=== PATIENT | female | born 1980 | race Hispanic/Latino ===

== ENCOUNTER 2016-06-07 09:48 | Day surgery (SDC) | payer OTHER ==
--- NOTE | 2016-06-03 09:10 | PCM.HPSURG ---
Subjective Date of Service: May 26, 2016 Referring Provider: Admitting Physician: Primary Care Physician: Kirsten Morrison DO Attending Physician: Christopher Munroe MD Chief Complaint SEE BELOW History of Present Illness Patient: Denisse Danielle Date of : 1980 Visit Type: Pre Op Visit Date: 05/26/2016 01:00 PM Historian: self This 35 year old female presents for PreOp MIS Left L4-5 Lami/Decompress/ Microdisc. History of Present Illness: 1. PreOp MIS Left L4-5 Lami/Decompress/Microdisc Denisse Betancur is a 35 year old female referred by Primary Care Provider (PCP) Dr. Kirsten Morrison DO who presents today's date 05/26/2016 for a preoperative type of appointment concerning the decision for surgery involving minimally invasive surgery with left L4-5 partial hemilaminectomy, lateral recess decompression & microdiscectomy secondary to a diagnosis of lumbar radiculopathy with related complaints of severe, intractable, debilitating low back pain radiating to the left > right lower extremity with numbness, & paresthesias. The patient was last evaluated on 03/02/[address] Christopher Munroe M.D. documenting that the patient recently moved to this area and presents with episodes of severe local back pain and bilateral radicular pain in an S1 distribution. The patient reported that she has had episodes of local back pain since age 27 usually resolve with rest over 3-7 days. She has had flareups of local back pain 1-2 times per year associated with increased activity. She developed episodes of shooting pain into the buttock and posterior leg in 2013 reported episodes of paresthesias involving the posterior calf feet in both legs. She was seen by a neurosurgeon for follow in July 2015 far an injury that occurred at work, a fall that caused a flareup of back pain and bilateral leg pain. She was referred for trial of steroid injections and the patient reported that she had considerable benefit with relief of back pain and lumbar radicular following the LEONIE. She then had a flareup of severe local back pain and lumbar radicular pain in November 2015, and is no longer responding to medical management, including a trial of physical therapy. It should be noted that an MRI scan of the lumbar spine was obtained in [place], in March 2015 showing a left L4-5 disc herniation with left lateral recess stenosis and possible compression of the left L5 root. There was a small disc bulge on the left at L5-S1 that did not appear to decompress the S1 roots. I was able to review this outside CD of the lumbar MRI in my office. The issue with this patient is whether there has been a progression of the disc herniation at L4-5 or L5-S1 causing bilateral S1 radiculopathy, since her symptoms flared up in November 2015. According to Dr. Munroe the patient has significant lumbar radiculopathy with left L4-5 herniated nucleus pulposus, lateral recess stenosis, & compression of the left L5 nerve root and left L5 radiculopathy refractory to medical management. Consequently he recommends lumbar spinal surgery involving minimally invasive lumbar spinal decompression & discectomy. Dr. Christensen & the patient discussed all the risks and benefits associated with the procedure well as well as reasonable expectations with regards to surgical outcomes & the patient elected to proceed with surgery as planned. The patient denies any related complete or acute loss of control of bowel or bladder function, saddle paresthesia or anesthesia. The patient has a reported pertinent past medical, surgical, family, & social history for right knee arthroscopically, right knee anterior cruciate ligament repair, right laparotomy, right oophorectomy, & chronic joint pain; with no other then the above known positive history &/or review of all other organ systems. The patient's related complaints have been a serious detriment to their happiness and activities of daily living. Having failed conservative treatment the patient presents today for their decision for surgery appointment involving minimally invasive surgery with left L4-5 partial hemilaminectomy, lateral recess decompression, & microdiscectomy for treatment of lumbar radiculopathy; related to severe, intractable, and debilitating lower back pain radiating to the left greater than right lower extremities with numbness, & paresthesias. The procedure is scheduled to be performed by Dr. Christopher Munroe M.D. on 06/07. Medical/Surgical/Interim History Reviewed, no change. Last detailed document date:05/26/2016. Family History: Reviewed, no changes. Last detailed document date:05/26/2016. Social History (Reviewed, updated) 05/26/2016 Tobacco use reviewed. Preferred language is Telugu. The patient does not need an refractory furnace designer. Smoking status: Never smoker. Smoking Status Use Status Type Smoking Status Years Used Total Pack Years no/never Never smoker Allergies: Ingredient Reaction Medication Name Comment MORPHINE Itching Reviewed, no changes. Review of Systems System Neg/Pos Details MS Positive Back pain. Cardio Negative Chest pain, irregular heartbeat/palpitations, leg swelling and pacemaker. Anthony/Lymph Negative Blood clots. Neuro Negative Dizziness, headache and seizures. ENMT Negative Hearing loss. MS Negative Bone/joint symptoms and muscle weakness. Constitutional Negative Chills and fever. Eyes Negative Double vision and vision loss. Negative Dysuria, urge incontinence and urinary incontinence. Psych Negative Anxiety and depression. Respiratory Negative Dyspnea, apnea and wheezing. Endocrine Negative Weight gain and weight loss. Integumentary Negative Mrsa and rash. GI Negative Abdominal pain, constipation, diarrhea, nausea and vomiting. Vital Signs Height Time ft in cm Last Measured Height Position % 12:44 PM 5.0 4.00 162.56 03/02/2016 Weight/BSA/BMI Time lb oz kg Context % BMI kg/m2 BSA m2 12:44 PM 142.20 64.501 dressed with shoes 24.41 Blood Pressure Time BP mm/Hg Position Side Site Method Cuff Size 12:44 PM 130/86 sitting wrist automatic adult Temperature/Pulse/Respiration Time Temp F Temp C Temp Site Pulse/min Pattern Resp/ min 12:44 PM 99.0 37.2 temporal 89 Pain Scale Time Pain Score Method 12:44 PM 4/10 Numeric Pain Intensity Scale Measured By Time Measured by 12:44 PM Lynda Aggarwal RN Screening Summary:o Pain is described as 4/10. Evaluated pain score with Numeric Pain Intensity Scale. The following were reviewed: tobacco use and alcohol use Physical Exam Exam Findings Details Comments WD/WN, female who is AO x 3, cooperative & appears to be in NAD w/ language & speech that is intact & fluent. There is no evidence of recent or remote memory impairment. The patient's knowledge is appropriate for age & level of education w/ a pleasant affect & euthymic mood. Ambulates w/ no difficulty. NC/AT, PERRL, EOMI, w/o facial droop, hearing grossly intact, nostrils patent, oral cavity and pharynx normal. Neck supple, w/o LAD or thyromegaly. Heart reveals RRR w/o audible murmurs Lungs CTAB Abdomen is NT/ND Walks slowly, increased back and leg pain sitting Positive Straight Leg Raise bilaterally, Neg Patricks DTRs 2+ in LEs Motor strength is 5/5 throughout in LEs, can stand on toes Diminished sensation lateral foot in an S1 distribution bilaterally Assessment/Plan # Detail Type Description 1. Assessment Lumbar radiculopathy (M54.16). 2. Assessment Preoperative examination (Z01.818). Patient Plan We including your Attending Surgeon have discussed the risks and benefits associated your scheduled procedure which you have verbally acknowledged understanding including but not limited to the possibility of an outcome that we are unable to predict or was not mentioned. 1. You are scheduled for a minimally invasive surgery left L4-5 partial hemilaminectomy, lateral recess decompression, & microdiscectomy with Dr. Christopher Munroe M.D. at [facility] on 06/07/2016. 2. Check in time is 9 AM. Also please ignore instructions below if told otherwise by your preadmission nurse or if you do not take the medications listed below. 3. Nothing to eat after midnight the night before surgery. You may take all of your "approved" medications with small sips of water. Remember to take your a.m. hypertension medication if it is a beta titus and ends in "olol. Otherwise ask your doctor if you need to hold your a.m. hypertension medication. 4. No aspirin, ibuprofen, Naprosyn, or other NSAIDs starting 7 days prior to surgery. 5. Please stop Warfarin/Coumadin or other blood thinners such as Plavix, Aggrenox, or Xarelto 7 days prior to your surgical procedure and follow specific instructions from your prescribing provider. 6. Please stop Lovenox bridging in the morning one day prior to procedure. 7. Please stop Suboxone/Buprenorphine at least 4 days prior to procedure. 8. Go to the hospital today to get her preoperative testing done. Take the order form to the surgery desk on the second floor of the hospital, [facility] (main entrance next to the emergency entrance). I will notify you if there is any test results that require further workup prior to surgery. 9. Follow the instructions you were given today, use the cleansing cloths the night before as well as the morning of her surgery. 10. If you are prescribed inhalers, CPAP or BiPAP machines you use at home bring along with you to the hospital. 11. ONLY If you take medications for Diabetes: If you have an insulin pump continue lowest (typically night-time) basal rate into the a.m. If you do not have a pump check h your a.m. blood sugar and hold insulin if BS less than 100. If you are taking long-acting, intermediate acting (NPH) or 70/30 preparation : Take half on day of procedure. If you are taking ultra long-acting insulin such as glargine, Lantus either at night or in the a.m. continue as scheduled ( including day of surgery). If you take short acting regular insulin (insulin not delivered via pump) discontinue on day of procedure. 12. Please call if you have any questions before your surgery: [phone]. Today's instructions/counseling include(s) Pre-operative instructions given to the patient and or legal apparel trimmings sales representative(s) orally and in writing. 13. Our office will contact you if there are any test results that require further workup prior to surgery. Provider Plan The patient's history and examination as well as radiological findings were reviewed with Dr. Christopher Munroe M.D. and conveyed the patient in detail. The findings are consistent with lumbar radiculopathy and are most likely the cause of the patient's severe, intractable, debilitating low back pain radiating to the left > right lower extremity with numbness, & paresthesias. The patient has failed extensive conservative treatment for this condition. The treatment options were discussed with the patient. The options include attempt to live with the condition, reattempt conservative treatment, try a pain management intervention / injection or consider a surgical intervention. We are not extremely optimistic that further conservative treatment, pain management intervention and/or injection will adequately resolve the patient's symptoms of severe, intractable, debilitating low back pain radiating to the left > right lower extremity with numbness, & paresthesias. Therefore we recommend minimally invasive surgery involving left L4-5 partial hemilaminectomy , lateral recess decompression, & microdiscectomy. The patient was provided/offered educational materials pertaining to their diagnosis and the above discussed procedure. We discussed the risks and benefits associated with this surgery. A spine model was used to explain the nature of this type of surgery. The risk of the required anesthesia was also mentioned including but not limited to organ failure such as heart attack, pneumonia and stroke even . The risk of this type of surgery was also mentioned. Including but not limited to an unsuccessful outcome, residual symptoms, referred or radiating posterior spinal myofascial inflammatory pain or spasm, post operative instability, instrumentation failure, sensory changes, blood loss, blood clots, wound infection, spinal cord or nerve damage, CSF or lymph leak, damage to neighboring structures such as the abdominal vasculature, bowel, ureter, and bladder, resulting in temporary or permanent dysfunction, even disability, paralysis, and . The recovery of this type of surgery was also mentioned. There is a 15% chance of recurrent disc herniation with a discectomy. The chances for improvement of the lumbar radiculopathy symptomology and the left lower extremity at one year is 70-80%. The chances of improvement of local unrelated lower back pain & right lower extremity referred pain is 50%. The patient verbalized understanding all the risks and benefits, knowing that it is impossible to predict or guarantee every surgical outcome; and would like to proceed with the above discussed procedure anyways. Surgery is scheduled for 06/07/2016 The standard [facility] preoperative screening tests, medicine restrictions, and logistical protocols apply. Any preoperative testing is within normal limits to undergo the above discussed procedure unless otherwise noted in the medical record. Medications (added, continued or stopped this visit): Start Date Medication Directions Stop Date cyclobenzaprine 10 mg tablet take 1 tablet by oral route 2 times every day 06/06/2016 cyclobenzaprine 5 mg tablet take 1-2 tablet(s) by oral route every 8 hours as needed for spasm gabapentin 300 mg capsule take 1 capsule by oral route 3 times every day ibuprofen 800 mg tablet take 1 tablet by oral route 3 times every day with food 06/06/2016 [place] 10 mg-325 mg tablet take 1-2 tablet by oral route every 4 - 6 hours as needed for pain tizanidine 4 mg tablet take 1 tablet by oral route every 8 hours as needed not to exceed 3 doses in 24 hours Counseling/Educational Factors: Counseling / educational factors reviewed. Counseling / educational factors reviewed. This is a visit of 60 minutes. 50 minutes were spent counseling. This document may have been created using voice recognition software or other electronic means and may contain inadvertent transitions rn care coordinator errors. Provider: David KYLE 05/26/2016 05:18 PM Document generated by: David Fonseca 05/26/2016 05:18 PM CC Providers: Kirsten Morrison [address] [address] [address] , [place] [address] jose harris i chino keller David Fonseca PA-C Jun 03, 2016 09:10
[~2016-06-07] VITALS: Ht 162.6 cm; Wt 63.0 kg
[2016-06-07] VITALS (13 sets, daily range): BP systolic 96–112; BP diastolic 44–64; PULSE 16–112; RESP 8–20; O2SAT 94–100
[2016-06-07] MEDS: Lactated Ringer's 1,000 ML IV SCH ×3 (05:00→12:27)
--- NOTE | 2016-06-07 08:18 | PCM.HPANE ---
Patient Data Surgeon Admitting Provider: Attending Provider:Christopher Munroe MD Primary Care Physician:Kirsten Morrison DO Other Provider:Alison Huber Anesthesia Reason for Visit Lumbar Radiculopathy Ht/WT & BMI Height (Feet): 5 Height (Inches): 4 Weight (Kilograms): 64.50 Body Mass Index 24.00 Allergies Coded Allergies: morphine (Verified Allergy, Unknown, intolerable itching, 06/07/16) Past Anesthesia History Anesthesia History: Denies:: Abnormal Airway, Anesthesia Reactions (wakes up a little "agitated and disoriented"), Difficult Intubation, Fam Anesthesia Reaction Diabetes History Hx Diabetes?: No MRSA MRSA: No Medications Hypertension Medication: No Home Meds Incl Beta Keegan: No Reported Medications Ibuprofen 800 Mg [id number] Mg PO TID PRN For Pain Ref 0 06/07/16 [coconut oil ] No Conflict Check1 Capsule DAILY 06/03/16 Multivitamin (Multi Vitamin Daily)1 Each Tablet1 Each PO DAILY 30 Days Ref 0 06/03/16 Tizanidine 4 Mg Capsule4 Mg PO Q8H PRN For Spasm 06/03/16 Gabapentin 300 Mg [id number] Mg PO BID Ref 0 06/03/16 Discontinued Reported Medications Multivitamin (Multi Vitamin Daily)1 Each Tablet1 Each PO DAILY 30 Days Ref 0 06/03/16 History History of ENT Problems?: Yes HEENT History: Positive for:: Sinus Problem (seasonal allergies currently) Denies:: Abnormal Airway Cataracts Difficult Intubation Dysphagia Glaucoma Hearing Problem TMJ Other HEENT Pertinent History: wears glasses for night vision driving Cardiovascular History: Denies:: AICD Abdominal Aortic Aneurism Atrial Fibrillation Cardiac Surgery Coronary Artery Disease Edema Heart Murmur Hypertension Irregular Heartbeat Pacemaker Peripheral Vascular Respiratory History: Denies:: Asthma COPD Emphysema Oxygen Administration Pneumonia Pulmonary Embolism Tuberculosis Use of C-PAP Machine Use of Inhalers / NEBS Hx Neurologic Problems?: No Neurological History: Positive for:: Headaches ([id number] hx- none since/ migraine) Denies:: CVA Multiple Sclerosis Parkinson's Disease Seizures TIA Hx of GI Problems?: No Gastrointestinal History: Denies:: Cirrhosis Gall Bladder Disease Gastroesphageal Reflux Gastrointestinal Bleeding Heartburn Hepatitis Hiatal Hernia Liver Disease Hx of Problems?: No Genitourinary History: Denies:: Kidney Stones Urinary Tract Infection Female Hx: Denies:: Currently (IUD in place) Problems with Breasts? Skin History: Denies:: History Skin Disorders? Pressure Ulcers Hx Musculoskeletal Problems?: Yes Musculoskeletal History: Positive for:: Back Injury (lumbar L4-5 current admission problem) Musculoskeletal Trauma (right knee acl hx, still some loose cartilage ) Osteoarthritis (knees) Denies:: Fibromyalgia Joint Replacement Myasthenia Gravis Rheumatoid Arthritis Systemic Lupus Hx of Psycho/Social Problems?: No Psycho Social History: Denies:: Anxiety Hx Depression Hx Surgeries?: Yes (right knee acl, scope, laparotomy- right oopherectomy) Hx Any Other Health Problems?: Yes Other History: Denies:: Cancer Thyroid Disease History Blood Transfusions: Positive for:: Accept Blood Products? Denies:: Blood Transfusions Hx Diabetes: No Hx Alcohol Use: YesAlcoholic Drinks Per Day: once every few monthsHx Substance Use: NoHave You Smoked inLast 12 mo: No Stop/Bang S-Snoring: Do You Snore Loudly: No T-Tired: feel tired, fatigued: No O-Obsered: Observed not breath: No P-Blood Pressure: treated: No B- Body Mass Index > 35 kg/m2: No A- Age over 50: No N- Neck Large Circumference: No G- Gender Male: No HERMELINDA Total Score: 0 HERMELINDA Risk Assessment: Low Risk, <3 Yes Risk Assessment Category Category 1A: Patient has history of documented sleep apnea, and HAS NOT received any narcotic, sedative or anesthesia administration during this stay. Category 1B: Patient has history of documented sleep apnea, and HAS received any narcotic , sedative or anesthesia administration during this stay Category 2: Patient has SUSPECTED Obstructive Sleep Apnea, and HAS received any narcotic , sedative or anesthesia administration during this stay. Category 3: Patient has SUSPECTED Obstructive Sleep Apnea and HAS NOT received narcotic, sedative or anesthesia administration during this stay. Category 4: Outpatient in Procedural Areas with known sleep apnea or who screen positive for High Risk via the STOP/BANG questionnaire. Exam Exam General Appearance: Alert, Oriented X3, Cooperative, No Acute Distress HEENT/AIRWAY: MP 1 Lungs: Normal Air Movement Heart: Exam Unremarkable Plan Impression Patient chart reviewed, patient interviewed and anesthestic plan with risks, benefits, and alternatives discussed, and informed consent obtained. ASA Physical Status: ASA1 Normal Healthy Anesthetic Plan: GA Bene/Risks/Altern/Consents: Yes HP Complete Prior to Induction: Yes David Buck MD Jun 07, 2016 08:18
[~2016-06-07 09:48] MED LIST: GABA-502 PO; MULT-1018 PO; TIZA4CAP8 PO; coconut oil
[2016-06-07] MEDS ORDERED: fentaNYL-PF 50 mCg/mL 2 mL Inj ONE (09:49)
[2016-06-07] MEDS ORDERED: Rocuronium 10 mg/mL 5 mL Inj ONE (09:49)
[2016-06-07] MEDS ORDERED: Lidocaine PF 1% 30 mL Inj ONE (09:49)
[2016-06-07] MEDS ORDERED: Propofol 10,000 mCg/mL 20 mL Inj ONE (09:49)
[2016-06-07] MEDS ORDERED: Dexamethasone 4 mg/mL Inj ONE (09:49)
[2016-06-07] MEDS ORDERED: Ondansetron 2 mg/mL 2 mL Inj ONE (09:49)
[2016-06-07] MEDS ORDERED: EPHEDrine/NS 5 mg/mL 5 mL Syringe ONE (09:49)
[2016-06-07] MEDS ORDERED: IBUP800T28 PO (10:42)
[2016-06-07] MEDS ORDERED: Bupivacaine Liposome 1.3% 20 mL Inj ONE (12:48)
[2016-06-07] MEDS ORDERED: Lactated Ringer's 1,000 ML IV SCH ×2 (12:52→16:05)
[2016-06-07] MEDS ORDERED: Lactated Ringer's 500 ML IV PRN (12:52)
[2016-06-07] MEDS ORDERED: MetoCLOpramide 5 mg/mL 2 mL Inj IVPUSH PRN (12:55)
[2016-06-07] MEDS ORDERED: fentaNYL-PF 50 mCg/mL 2 mL Inj IVPUSH PRN (12:55)
[2016-06-07] MEDS ORDERED: Dexamethasone 4 mg/mL Inj IVPUSH PRN (12:55)
[2016-06-07] MEDS ORDERED: Ondansetron 2 mg/mL 2 mL Inj IVPUSH PRN ×2 (12:55→16:05)
[2016-06-07] MEDS ORDERED: Phenylephrine 10,000 mCg/mL Inj IVPUSH PRN (12:55)
[2016-06-07] MEDS ORDERED: EPHEDrine Sulfate 50 mg/mL Inj IVPUSH PRN (12:55)
[2016-06-07] MEDS ORDERED: Bupivacaine-MPF 0.5% 30 mL Inj INJ ONE (13:28)
[2016-06-07] MEDS ORDERED: Bacitracin 50,000 unit Inj IRRIGATION ONE (13:28)
[2016-06-07] MEDS ORDERED: Gelatin Sponge 12-7 MM TOPICAL ONE (13:28)
--- NOTE | 2016-06-07 14:50 | DRSVH ---
PROCEDURE: X-RAY LUMBAR SPINE, 2 OR 3 VIEW INDICATIONS: C-ARM ASSISTED PARTIAL LAMINECTOMY TECHNIQUE: Renal intraoperative fluoroscopic view of the lumbar spine was acquired. COMPARISON: [facility], , L-SPINE WITHOUT CONTRAST, 03/16/2016, 7:36. FINDINGS: Bones: Posterior intraoperative marker is present at the L4-5 disc interspace. IMPRESSION: Single intraoperative view localizing the L4-5 disc interspace. Dictated by: Sonal Mckeon M.D. on 06/07/2016 at 14:47 Approved by: Sonal Mckeon M.D. on 06/07/2016 at 14:48
--- NOTE | 2016-06-07 15:19 | PCM.ANEP1 ---
Post Anesthesia Phase 1 PACU Phase 1 Assessment Date of Service: May 26, 2016 Vital Signs see anesthesia record Vital Signs Date Time Temp Pulse Resp B/P Pulse Ox O2 Delivery O2 Flow Rate FiO2 06/07/16 10:20 36.4 85 16 105/64 100 Room Air Anesthetic Administered: GA Level of Alertness: Sleepy, easy to arouse ANGEL's with Equal Strength: Yes Pain: No Nausea or Vomiting: No Oxygen Delivery: Nasal Cannula Lungs: Normal Air Movement David Buck MD Jun 07, 2016 15:19
--- NOTE | 2016-06-07 15:19 | PCM.ANEP2 ---
Post Anesthesia Evaluation ASA/CMS Post Anesthesia VS in Patient's Normal Range?: Yes Resp Stable; Airway Patent?: Yes CV Function & Hydration Stable: Yes Mental Status Recovered?: Yes Pain control Satisfactory?: Yes N/V Control Satisfactory?: Yes David Buck MD Jun 07, 2016 15:19
--- NOTE | 2016-06-07 15:41 | PCM.DISURG ---
Surgical Discharge Instruction Date of Service Jun 07, 2016 Dates of Hospitalization Date of Hospital Admission Outpatient day surgery status 06/07/2016 Providers Admitting Physician: Primary Care Physician: Kirsten Morrison DO Attending Physician: Christopher Munroe MD Discharge Diagnosis Discharge Diagnosis Status post minimally invasive surgery involving left L4-5 partial hemilaminectomy, lateral recess decompression, & microdiscectomy Post Operative diagnosis Status post minimally invasive surgery involving left L4-5 partial hemilaminectomy, lateral recess decompression, & microdiscectomy Additional Instructions Discharge Instructions Lumbar Decompression Instructions What is my recovery like? Patient's usually go home the same day of surgery. A lumbar brace is worn for comfort only. What are my restrictions? You should not lift anything heavier than five pounds. You should not perform any excessive bending from the waist or twisting movements. Can I Shower? You may shower when you go home. You must remove the outside dressing on the 7th day after surgery, or change as needed if soiled or saturated (replacing new sterile gauze & water proof dressing) otherwise leave alone. The remaining small pieces of tape (steri-strips) directly on top of the incision may get wet. The steri-strips will fall off on their own. Can I drive? No, you should not drive until specifically given permission from your Doctor in a follow up appointment. Most Patient's can drive in 2-3 weeks if they are not taking narcotic pain medications or muscle relaxers. You may ride in a car, but should avoid trips longer than two hours in duration. When can I return work / sports? Your Doctor will discuss your return to work with you on your first postoperative follow-up appointment. Most patients may return to work within 2 weeks for sedentary jobs. More physically demanding jobs may require 3-6 months of healing before such work can be considered. When should I call the doctor? You should call your Doctor or go to the Emergency Department if you develop chest pain, shortness of breath, a temperature greater than 101.5 F, severe uncontrolled pain or weakness, loss of bowel or bladder function, choking, lots or drainage, pus discharge or constipation. Instructions Regarding Comfort & Pain Medication Use: During the recovery period , even with the use of pain medication, you may experience pain at the site of surgery. You may also have the same type of pain you had before surgery. Please use your pain scale as a guide for taking your pain medication. When your pain is greater than 4 out of 10, or when your pain reaches your personal tolerable level of pain, take your pain medication as prescribed. Use your pain medication on an 'as needed' basis. This means if your pain level is within your tolerable level of pain you DO NOT need to take the medication. As you get better, you will notice you can increase the time interval between doses and decrease the number of tablets you are taking, gradually taking less and less pain medication. Taking pain medication when it is not necessary (for example when your pain is tolerable or acceptable) can result in dangerous side effects and over- sedation. Signs and symptoms of over-sedation include: drowsiness, excessive sleeping, slow or difficult breathing, slurred speech, impaired thinking, confusion, impaired motor coordination. If you have any of these symptoms stop taking the medication and immediately contact your doctor. IF SYMPTOMS ARE LIFE THREATENING CALL 911. To decrease pain and swelling, frequently apply an ice pack for 20 min intervals with at least one hour off. When to take Acetaminophen for pain? If you don't have liver problems, allergies and/or Tylenol is not in your current pain medication. Take Extra Strength Tylenol 500mg 2 tabs by mouth every 6 hours as needed for pain. DO NOT EXCEED 8 TABS PER DAY. Follow Up Plan Follow Up Plan Follow-up with physician assistant federal public defender in outpatient neurosurgical clinic in 1 week for wound check. Follow-up Provider (F9): David Fonseca PA-C Additional Information Attending Statement All documentation reviewed & orders authorized by Tomas Frederick Scott PA-C Jun 07, 2016 15:41
[2016-06-07] MEDS: HYDROmorphone 1 mg/mL Inj IVPUSH PRN ×2 (15:42→16:24)
--- NOTE | 2016-06-07 15:51 | DRSVH ---
PROCEDURE: X-RAY ABDOMEN DECUBITUS, LEFT INDICATIONS: R/O Free Air Under Diaphram Pls!, ABDOMEN PAIN TECHNIQUE: One view of the abdomen acquired. COMPARISON: None. FINDINGS: Surgical changes and devices: None. Bowel: Bowel gas pattern is normal. Soft tissues: No suspicious abdominal calcifications. Visualized solid organ contours appear normal in size. Bones: No suspicious bony lesions. IMPRESSION: No free intraperitoneal gas identified and the bowel gas pattern appears normal. Replaced By [facility] PAC given results 1550 hrs. 06/07/2016. Dictated by: Chandu Torre [facility] Interpreted: Sonal Mckeon MD on 06/07/2016 at 15:49 Transcribed by: SANDRA on 06/07/2016 at 15:50 Approved by: Sonal Mckeon M.D. on 06/07/2016 at 17:13
[2016-06-07] MEDS ORDERED: HYDROmorphone 1 mg/mL Inj IVPUSH PRN (16:05)
[2016-06-07] MEDS ORDERED: Sodium Biphos-Phos 133 mL Enema RECTAL PRN (16:05)
[2016-06-07] MEDS ORDERED: Polyethylene Glycol (PEG) 17 Gm Powder PO PRN (16:05)
[2016-06-07] MEDS ORDERED: Magnesium Hydroxide 10 mL Oral Concentration PO PRN (16:05)
[2016-06-07] MEDS ORDERED: Senna-Docusate 8.6-50 mg Tablet PO PRN (16:05)
[2016-06-07] MEDS ORDERED: Lactated Ringer's 1,000 ML IV ONE (16:22)
[2016-06-07] MEDS: hydrOXYzine Pamoate 25 mg Capsule PO PRN (17:19)
[2016-06-07] MEDS: HYDROcodone-APAP 10-325 mg PO PRN ×2 (17:19→21:21)
--- NOTE | 2016-06-07 19:45 | NUR ---
Post op transfer Pt transferred from PACU to [facility] rm 1017 at 1845. Pt arrived in bed, alert/oriented and talking. Pt reporting bilateral numbness, with greater numbness on right side. Pt reporting right side back pain, tolerable at this time. Able to slightly lift legs and wiggle toes, brisk cap refill, strong pedal pulses. LR infusing at 80 ml/hr. Lower back dressing CDI. Pt tolerating clear liquids at this time.
[2016-06-07] MEDS: Senna-Docusate 8.6-50 mg Tablet PO SCH (20:56)
[2016-06-07] MEDS: CeFAZolin Inj 1 GM in IV Premix 1 EACH IV SCH (20:57)
--- NOTE | 2016-06-07 23:52 | OP ---
[address] [address] OPERATIVE REPORT PATIENT: ETHAN CALLOWAY V : 1980 MR#: [id number] ADMIT: 06/07/2016 JOB ID: [id number] DATE OF SURGERY: 06/07/2016 PREOPERATIVE DIAGNOSIS(ES): Lumbar disc herniation with lumbar radiculopathy. POSTOPERATIVE DIAGNOSIS(ES): Lumbar disc herniation with lumbar radiculopathy. PROCEDURE: Minimally invasive surgery, left L4-L5 partial hemilaminectomy, microdiscectomy and lateral recess decompression. SURGEON: Christopher Munroe MD ORTHOTIST/PROSTHETIST: David Fonseca PA-C ANESTHESIA: General with David Buck. ESTIMATED BLOOD LOSS: 50 cc. DRAINS: None. COMPLICATIONS: None. INDICATIONS: This patient presented with lumbar radiculopathy and was found to have a disc herniation on the left side at L4-L5 compressing the left L5 root. DESCRIPTION OF PROCEDURE: This patient was taken to the operating room on June 07, 2016, placed under general anesthesia, placed prone on a Clifton frame and prepped and draped sterile. A spinal needle was placed at the L4-L5 level and the location of the marker was confirmed with a C-arm, a lateral image of the lumbar spine. The skin was then infiltrated with 0.5% plain Marcaine and a 2 cm incision was placed just to the left of midline at L4-L5. The incision was carried down sharply through the skin and subcutaneous tissues. Progressive dilators were then placed on the left side under fluoroscopic guidance, docking with the lamina of L4. An operating tube measuring 4 cm in length and 22 mm in diameter was placed just to the left of midline at the L4-L5 level. The position of the operating tube was confirmed with an AP and lateral fluoroscopic image. This was confirmed by Radiology. The microscope was then brought into position, sighting through the operating tube. The soft tissue overlying the lamina of L4 was cauterized. The patient had a partial hemilaminectomy of L4 and the ligamentum flavum was removed. The patient also had a lateral recess decompression, removing the most medial aspect of the left L4 and L5 facet and undermining with the Kerrison punch to decompress the lateral recess of the left L5 root. The L5 root was then mobilized medially and the patient was noted to have a disc protrusion that was adherent to the vertebral bodies of L4 and L5 at the disc space. This protrusion was resected with the reverse angle curette, then the disc space was entered and additional degenerative disc material was removed with the reverse angle curette and the pituitary rongeur. The disc space was irrigated with antibiotic solution. Hemostasis was achieved with the [employer] cauterizing instrument. Bone wax was applied to the partial hemilaminectomy defect for hemostasis. Gelfoam was left in the partial hemilaminectomy defect. The dorsal lumbar fascia was approximated with interrupted sutures of 0 Vicryl. The patient received 40 cc of Exparel, 20 cc into the paraspinous musculature. The remaining 20 cc were given in the dermal layer and subcutaneous tissues. The wound was then approximated with interrupted sutures of 0 Vicryl and the skin was closed with 2-0 Vicryl. Steri-Strips were applied to the skin, which was dressed with Telfa, gauze, and tape.
[2016-06-08 00:39] VITALS: BP 96/51; PULSE 97; RESP 16; O2SAT 96
[2016-06-08] MEDS: CeFAZolin Inj 1 GM in IV Premix 1 EACH IV SCH (03:49)
--- NOTE | 2016-06-08 04:58 | NUR ---
Post op progress Pt reporting numbness is getting "slightly better" Right lower extremity still more numb than the left side. Pt voided on bedpan due to numbness, 900ml of urine. Pt strength is increasing, wiggling toes, aware of touch. Pt hopeful to get up out of bed, however dangling on side of bed pt trying to lift right foot and having a difficult time due to numbness. Did not try to ambulate pt for this reason. Dressing to lower back with minimal serosang drainage. Pt pain was up to 5/10 and was given 1 tab of [place] 10/325, on reassessment pt reporting not much change in pain level and requested Tordal. After IV Tordal given, pt reported decrease in pain now tolerable. Pt on RA, VSS. SCDs have been on overnight.
[2016-06-08] MEDS: HYDROcodone-APAP 10-325 mg PO PRN ×3 (05:55→22:32)
[2016-06-08] MEDS: hydrOXYzine Pamoate 25 mg Capsule PO PRN (05:57)
[2016-06-08 10:06] VITALS: BP 120/80; PULSE 99; RESP 16; O2SAT 98
--- NOTE | 2016-06-08 10:21 | PCM.DC.SUR ---
Discharge Summary Date of Discharge: Diagnosis at Time of Discharge Status post Minimally invasive surgery, left L4-L5 partial hemilaminectomy, microdiscectomy and lateral recess decompression Problems: Operation Minimally invasive surgery, left L4-L5 partial hemilaminectomy, microdiscectomy and lateral recess decompression Brief History and Physical: Patient: Denisse Danielle Date of : 1980 Visit Type: Pre Op Visit Date: 05/26/2016 01:00 PM Historian: self This 35 year old female presents for PreOp MIS Left L4-5 Lami/Decompress/ Microdisc. History of Present Illness: 1. PreOp MIS Left L4-5 Lami/Decompress/Microdisc Denisse Betancur is a 35 year old female referred by Primary Care Provider (PCP) Dr. Kirsten Morrison DO who presents today's date 05/26/2016 for a preoperative type of appointment concerning the decision for surgery involving minimally invasive surgery with left L4-5 partial hemilaminectomy, lateral recess decompression & microdiscectomy secondary to a diagnosis of lumbar radiculopathy with related complaints of severe, intractable, debilitating low back pain radiating to the left > right lower extremity with numbness, & paresthesias. The patient was last evaluated on 03/02/[address] Christopher Munroe M.D. documenting that the patient recently moved to this area and presents with episodes of severe local back pain and bilateral radicular pain in an S1 distribution. The patient reported that she has had episodes of local back pain since age 27 usually resolve with rest over 3-7 days. She has had flareups of local back pain 1-2 times per year associated with increased activity. She developed episodes of shooting pain into the buttock and posterior leg in 2013 reported episodes of paresthesias involving the posterior calf feet in both legs. She was seen by a neurosurgeon for follow in July 2015 far an injury that occurred at work, a fall that caused a flareup of back pain and bilateral leg pain. She was referred for trial of steroid injections and the patient reported that she had considerable benefit with relief of back pain and lumbar radicular following the LEONIE. She then had a flareup of severe local back pain and lumbar radicular pain in November 2015, and is no longer responding to medical management, including a trial of physical therapy. It should be noted that an MRI scan of the lumbar spine was obtained in [place], in March 2015 showing a left L4-5 disc herniation with left lateral recess stenosis and possible compression of the left L5 root. There was a small disc bulge on the left at L5-S1 that did not appear to decompress the S1 roots. I was able to review this outside CD of the lumbar MRI in my office. The issue with this patient is whether there has been a progression of the disc herniation at L4-5 or L5-S1 causing bilateral S1 radiculopathy, since her symptoms flared up in November 2015. According to Dr. Munroe the patient has significant lumbar radiculopathy with left L4-5 herniated nucleus pulposus, lateral recess stenosis, & compression of the left L5 nerve root and left L5 radiculopathy refractory to medical management. Consequently he recommends lumbar spinal surgery involving minimally invasive lumbar spinal decompression & discectomy. Dr. Christensen & the patient discussed all the risks and benefits associated with the procedure well as well as reasonable expectations with regards to surgical outcomes & the patient elected to proceed with surgery as planned. The patient denies any related complete or acute loss of control of bowel or bladder function, saddle paresthesia or anesthesia. The patient has a reported pertinent past medical, surgical, family, & social history for right knee arthroscopically, right knee anterior cruciate ligament repair, right laparotomy, right oophorectomy, & chronic joint pain; with no other then the above known positive history &/or review of all other organ systems. The patient's related complaints have been a serious detriment to their happiness and activities of daily living. Having failed conservative treatment the patient presents today for their decision for surgery appointment involving minimally invasive surgery with left L4-5 partial hemilaminectomy, lateral recess decompression, & microdiscectomy for treatment of lumbar radiculopathy; related to severe, intractable, and debilitating lower back pain radiating to the left greater than right lower extremities with numbness, & paresthesias. The procedure is scheduled to be performed by Dr. Christopher Munroe M.D. on 06/07. Medical/Surgical/Interim History Reviewed, no change. Last detailed document date:05/26/2016. Family History: Reviewed, no changes. Last detailed document date:05/26/2016. Social History (Reviewed, updated) 05/26/2016 Tobacco use reviewed. Preferred language is Sinhala. The patient does not need an supervisor histology. Smoking status: Never smoker. Smoking Status Use Status Type Smoking Status Years Used Total Pack Years no/never Never smoker Allergies: Ingredient Reaction Medication Name Comment MORPHINE Itching Reviewed, no changes. Review of Systems System Neg/Pos Details MS Positive Back pain. Cardio Negative Chest pain, irregular heartbeat/palpitations, leg swelling and pacemaker. Anthony/Lymph Negative Blood clots. Neuro Negative Dizziness, headache and seizures. ENMT Negative Hearing loss. MS Negative Bone/joint symptoms and muscle weakness. Constitutional Negative Chills and fever. Eyes Negative Double vision and vision loss. Negative Dysuria, urge incontinence and urinary incontinence. Psych Negative Anxiety and depression. Respiratory Negative Dyspnea, apnea and wheezing. Endocrine Negative Weight gain and weight loss. Integumentary Negative Mrsa and rash. GI Negative Abdominal pain, constipation, diarrhea, nausea and vomiting. Vital Signs Height Time ft in cm Last Measured Height Position % 12:44 PM 5.0 4.00 162.56 03/02/2016 Weight/BSA/BMI Time lb oz kg Context % BMI kg/m2 BSA m2 12:44 PM 142.20 64.501 dressed with shoes 24.41 Blood Pressure Time BP mm/Hg Position Side Site Method Cuff Size 12:44 PM 130/86 sitting wrist automatic adult Temperature/Pulse/Respiration Time Temp F Temp C Temp Site Pulse/min Pattern Resp/ min 12:44 PM 99.0 37.2 temporal 89 Pain Scale Time Pain Score Method 12:44 PM 4/10 Numeric Pain Intensity Scale Measured By Time Measured by 12:44 PM Lynda Aggarwal RN Screening Summary:o Pain is described as 4/10. Evaluated pain score with Numeric Pain Intensity Scale. The following were reviewed: tobacco use and alcohol use Physical Exam Exam Findings Details Comments WD/WN, female who is AO x 3, cooperative & appears to be in NAD w/ language & speech that is intact & fluent. There is no evidence of recent or remote memory impairment. The patient's knowledge is appropriate for age & level of education w/ a pleasant affect & euthymic mood. Ambulates w/ no difficulty. NC/AT, PERRL, EOMI, w/o facial droop, hearing grossly intact, nostrils patent, oral cavity and pharynx normal. Neck supple, w/o LAD or thyromegaly. Heart reveals RRR w/o audible murmurs Lungs CTAB Abdomen is NT/ND Walks slowly, increased back and leg pain sitting Positive Straight Leg Raise bilaterally, Neg Patricks DTRs 2+ in LEs Motor strength is 5/5 throughout in LEs, can stand on toes Diminished sensation lateral foot in an S1 distribution bilaterally Assessment/Plan # Detail Type Description 1. Assessment Lumbar radiculopathy (M54.16). 2. Assessment Preoperative examination (Z01.818). Patient Plan We including your Attending Surgeon have discussed the risks and benefits associated your scheduled procedure which you have verbally acknowledged understanding including but not limited to the possibility of an outcome that we are unable to predict or was not mentioned. 1. You are scheduled for a minimally invasive surgery left L4-5 partial hemilaminectomy, lateral recess decompression, & microdiscectomy with Dr. Christopher Munroe M.D. at [facility] on 06/07/2016. 2. Check in time is 9 AM. Also please ignore instructions below if told otherwise by your preadmission nurse or if you do not take the medications listed below. 3. Nothing to eat after midnight the night before surgery. You may take all of your "approved" medications with small sips of water. Remember to take your a.m. hypertension medication if it is a beta titus and ends in "olol. Otherwise ask your doctor if you need to hold your a.m. hypertension medication. 4. No aspirin, ibuprofen, Naprosyn, or other NSAIDs starting 7 days prior to surgery. 5. Please stop Warfarin/Coumadin or other blood thinners such as Plavix, Aggrenox, or Xarelto 7 days prior to your surgical procedure and follow specific instructions from your prescribing provider. 6. Please stop Lovenox bridging in the morning one day prior to procedure. 7. Please stop Suboxone/Buprenorphine at least 4 days prior to procedure. 8. Go to the hospital today to get her preoperative testing done. Take the order form to the surgery desk on the second floor of the hospital, [facility] (main entrance next to the emergency entrance). I will notify you if there is any test results that require further workup prior to surgery. 9. Follow the instructions you were given today, use the cleansing cloths the night before as well as the morning of her surgery. 10. If you are prescribed inhalers, CPAP or BiPAP machines you use at home bring along with you to the hospital. 11. ONLY If you take medications for Diabetes: If you have an insulin pump continue lowest (typically night-time) basal rate into the a.m. If you do not have a pump check h your a.m. blood sugar and hold insulin if BS less than 100. If you are taking long-acting, intermediate acting (NPH) or 70/30 preparation : Take half on day of procedure. If you are taking ultra long-acting insulin such as glargine, Lantus either at night or in the a.m. continue as scheduled ( including day of surgery). If you take short acting regular insulin (insulin not delivered via pump) discontinue on day of procedure. 12. Please call if you have any questions before your surgery: [phone]. Today's instructions/counseling include(s) Pre-operative instructions given to the patient and or legal sales account representative(s) orally and in writing. 13. Our office will contact you if there are any test results that require further workup prior to surgery. Provider Plan The patient's history and examination as well as radiological findings were reviewed with Dr. Christopher Munroe M.D. and conveyed the patient in detail. The findings are consistent with lumbar radiculopathy and are most likely the cause of the patient's severe, intractable, debilitating low back pain radiating to the left > right lower extremity with numbness, & paresthesias. The patient has failed extensive conservative treatment for this condition. The treatment options were discussed with the patient. The options include attempt to live with the condition, reattempt conservative treatment, try a pain management intervention / injection or consider a surgical intervention. We are not extremely optimistic that further conservative treatment, pain management intervention and/or injection will adequately resolve the patient's symptoms of severe, intractable, debilitating low back pain radiating to the left > right lower extremity with numbness, & paresthesias. Therefore we recommend minimally invasive surgery involving left L4-5 partial hemilaminectomy , lateral recess decompression, & microdiscectomy. The patient was provided/offered educational materials pertaining to their diagnosis and the above discussed procedure. We discussed the risks and benefits associated with this surgery. A spine model was used to explain the nature of this type of surgery. The risk of the required anesthesia was also mentioned including but not limited to organ failure such as heart attack, pneumonia and stroke even . The risk of this type of surgery was also mentioned. Including but not limited to an unsuccessful outcome, residual symptoms, referred or radiating posterior spinal myofascial inflammatory pain or spasm, post operative instability, instrumentation failure, sensory changes, blood loss, blood clots, wound infection, spinal cord or nerve damage, CSF or lymph leak, damage to neighboring structures such as the abdominal vasculature, bowel, ureter, and bladder, resulting in temporary or permanent dysfunction, even disability, paralysis, and . The recovery of this type of surgery was also mentioned. There is a 15% chance of recurrent disc herniation with a discectomy. The chances for improvement of the lumbar radiculopathy symptomology and the left lower extremity at one year is 70-80%. The chances of improvement of local unrelated lower back pain & right lower extremity referred pain is 50%. The patient verbalized understanding all the risks and benefits, knowing that it is impossible to predict or guarantee every surgical outcome; and would like to proceed with the above discussed procedure anyways. Surgery is scheduled for 06/07/2016 The standard [facility] preoperative screening tests, medicine restrictions, and logistical protocols apply. Any preoperative testing is within normal limits to undergo the above discussed procedure unless otherwise noted in the medical record. Medications (added, continued or stopped this visit): Start Date Medication Directions Stop Date cyclobenzaprine 10 mg tablet take 1 tablet by oral route 2 times every day 06/06/2016 cyclobenzaprine 5 mg tablet take 1-2 tablet(s) by oral route every 8 hours as needed for spasm gabapentin 300 mg capsule take 1 capsule by oral route 3 times every day ibuprofen 800 mg tablet take 1 tablet by oral route 3 times every day with food 06/06/2016 [place] 10 mg-325 mg tablet take 1-2 tablet by oral route every 4 - 6 hours as needed for pain tizanidine 4 mg tablet take 1 tablet by oral route every 8 hours as needed not to exceed 3 doses in 24 hours Counseling/Educational Factors: Counseling / educational factors reviewed. Counseling / educational factors reviewed. This is a visit of 60 minutes. 50 minutes were spent counseling. This document may have been created using voice recognition software or other electronic means and may contain inadvertent management scientist errors. Provider: David KYLE 05/26/2016 05:18 PM Document generated by: David Fonseca 05/26/2016 05:18 PM CC Providers: Kirsten Morrison [facility] [address] [place] [phone] [place] [id number] w w w . s r c l i n i c s . o r g Hospital Course: Hospital Course: The patient was admitted through same day surgery and subsequently underwent a Minimally invasive surgery, left L4-L5 partial hemilaminectomy, microdiscectomy and lateral recess decompression. The patient tolerated the procedure well. The patient was then was transferred to PACU, Day Surgery, and then to the OSC floor because of new diffuse right > left numbness from the waist down & worst in the posterior right calf including difficulty with ambulation. The patient was admitted for postoperative pain control, PT/OT, supervised for co- morbidities with Hospitalist medical evaluation & clearance for discharge, nurse monitoring, continuous pulse oximetry, and discharge planning with social work after continued improving numbness & difficulty ambulating with physical therapy suffering to idiopathic syncopal "vasovagal" episodes resulting in a hospital code response & attributed possibly to dehydration by the Hospitalist Medical Team. The patient underwent a urgent postoperative lumbar spinal MRI without contrast yesterday confirming no physical compression on the lumbar spinal nerve roots & ruling out any possible urgent epidural hematoma or infection concerns. Dr. Munroe evaluated the patient's yesterday & this morning indicating that she is stable from a Neurosurgical standpoint suggesting that there is a rare possibility that the local anesthetic has caused her numbness & difficulty with ambulation; which should significantly improve soon. The Patient's overnight course much improved transferring to a bedside commode. Currently the patient has complaints of surgical site pain are minimal. The global sporadic & nonspecific numbness & sensation from the groin down into the bilateral lower extremities with on the right side is improved. There is significant improvement of the patient's residual lumbar radiculopathy symptoms related to the decompression she underwent only on the left side. The patient denies headache, fever, chills, severe sore throat or dysphagia, chest pain, shortness of breath, oversedation, abdominal pain, nausea, vomiting , constipation, diarrhea, or any new onset &/or location of pain, weakness or paresthesias aside from the surgical site. PHYSICAL EXAM This is a well developed, well nourished, female who is alert, cooperative, and appears to be in no acute distress with pleasant affect & euthymic mood. Exam of the head is normocephalic. PERRL, EOMI, without facial droop, hearing grossly intact, nostrils patent, oral cavity and pharynx normal. Voice is within normal limits Exam or the heart reveals regular rate and rhythm without audible murmurs The lungs are clear to auscultation bilaterally The abdomen is non- tender and non-distended Exam of the lumbar surgical wound reveals that it is mostly clean, dry, and intact; without signs of infection, inflammation, and/or hematoma. There is scant serosanguineous spotting only. Gross exam of the extremities reveals strength & lower extremity DTRs are grossly intact within the patient's normal baseline limits except diffuse sporadic numbness & sensation from the waist down including the bilateral right > left lower extremities & worse in the posterior calf & heel. All questions were answered. The patient was eventually able to get out of bed and ambulate within acceptable limits prior to discharge. We will request Hospitalist Medical Team EMR documented clearance for discharge home status post Hospital code response & multiple syncopal episodes. Therapy services made recommendations for disposition safely home. Flatus was appreciated and the patient was able to void without significant difficulty. The pain was gradually under control. The patient was afebrile on discharge & other vital signs in stable condition. The patient's incision(s) was clean, dry and intact. The dressing was changed to the Surgeon's specifications. The patient progressed well enough with rehabilitation and was subsequently discharged to home in stable condition. She already has already picked up her postoperative prescription analgesic & muscle relaxant medications. A postoperative outpatient Neurosurgical appointment for wound check & reevaluation is scheduled for next week. The patient verbally affirmed understanding when given clear instruction regarding the postoperative care and follow-up including but not limited to seeking immediate medical attention for chest pain, shortness of breath, oversedation, a temperature greater than 101.5 F, severe uncontrolled pain , numbness, or weakness, dysfunction including but not limited to loss of bowel or bladder control, choking, lots or drainage, pus discharge or constipation. All questions were answered. Disposition: Home in stable condition after physical therapy recommendation for disposition & Hospital's Medical Team clearance for discharge. Follow-up Plan: Follow-up with physician clinical medical assistant in outpatient neurosurgical clinic in 1 week for wound check. ([coconut oil ]) 1 CAPSULE DAILY (Reported) Gabapentin (Gabapentin) 300 Mg Capsule 600 MG PO BID (Reported) Ibuprofen (Ibuprofen) 800 Mg Tablet 800 MG PO TID PRN PRN For Pain (Reported) Multivitamin (Multi Vitamin Daily) 1 Each Tablet 1 EACH PO DAILY (Reported) Tizanidine (Tizanidine) 4 Mg Capsule 4 MG PO Q8H PRN PRN For Spasm (Reported) Discharge Medications: Prescribed during the patient's preoperative appointment. Attending Statement: Follow-up documentation reviewed and percent hours authorized by Dr. Christopher Munroe M.D. copies to: Kirsten Morrison Scott PA-C Jun 08, 2016 10:21
[2016-06-08 10:22] VITALS: BP 88/61; O2SAT 97
--- NOTE | 2016-06-08 10:41 | PCM.PNSURG ---
Subjective Date of Service: May 28, 2016 Visit Information: Reason for Visit Lumbar Radiculopathy Surgery/Surgery Date Post-Op Day # Date of Admission: Hospital Day # Subjective: Denisse Solo is a 35 year old female who presents on the date 2016 post operative day # 1 status post Minimally invasive surgery, left L4-L5 partial hemilaminectomy, microdiscectomy and lateral recess decompression. The patient's overnight course was difficult in Day Surgery therefore the [place] [facility] [place] because of diffuse right > left numbness from the waist down & worse in the posterior right calf & including difficulty with ambulation. Currently the patient has reported improved but persistent recent new complaints. She was evaluated with physical therapy & was unable to ambulate & suffered two possible orthostatic or vasovagal episodes including near falls. The hospitalist service was called for medical consultation after a rapid response team evaluated the patient noting normal vital signs after the episodes. Dr. Christopher Munroe M.D. the patient's Attending Neurosurgeon evaluated the patient earlier in the a.m. confirming that she has nonspecific global numbness from the waist down with sporadic sensation throughout the legs, normal strength & reflexes. He suggested that the patient may have rare local anesthetic reaction, or possible hematoma; but intraoperative nerve damage is very unlikely. There is significant improvement the residual lower extremity pain symptoms related to the patient's disc herniation & lumbar radiculopathy. She reports that her pain is currently well controlled. The patient denied any related bowel or bladder dysfunction, saddle anesthesia or paresthesia, headache, severe sore throat, fever, chills, chest pain, shortness or breath, abdominal pain, nausea, vomiting, constipation, diarrhea, or any other new onset and location of pain, numbness or paresthesias aside from the surgical site. Objective Objective This is a well developed, well nourished, female who is alert, cooperative, and appears to be in no acute distress with pleasant affect & euthymic mood. Exam of the head is normocephalic. PERRL, EOMI, without facial droop, hearing grossly intact, nostrils patent, oral cavity and pharynx normal. Voice is within normal limits Exam or the heart reveals regular rate and rhythm without audible murmurs The lungs are clear to auscultation bilaterally The abdomen is non- tender and non-distended Exam of the lumbar surgical wound reveals that it is mostly clean, dry, and intact; without signs of infection, inflammation, and/or hematoma. There is scant serosanguineous spotting only. Gross exam of the extremities reveals strength & lower extremity DTRs are grossly intact within the patient's normal baseline limits except diffuse sporadic numbness & sensation from the waist down including the bilateral right > left lower extremities & worse in the posterior calf & heel. Vital Sign- Last 8 Hours Date Time Temp Pulse Resp B/P Pulse Ox O2 Delivery O2 Flow Rate FiO2 06/08/16 10:06 36.9 99 16 120/80 98 Room Air Intake and Output- Last 8 Hour 06/08/16 Cumulative From/Thru 07:00 06/03/16 14:44 - 06/08/16 06:04 Intake Total 861 ml 2061 ml Balance 861 ml 2061 ml Intake IV Total 861 ml 2061 ml Assessment & Plan Impression Status post Minimally invasive surgery, left L4-L5 partial hemilaminectomy, microdiscectomy and lateral recess decompression postop day #1 with idiopathic diffuse numbness & difficulty with ambulation. The patient also suffered possible vasovagal or orthostatic syncopal episodes while attempting ambulation. Problems: Plan 1. Urgent lumbar spine MRI without contrast. Dr. Christopher Munroe M.D. will personally review & unless emergent or urgent we will discuss with the patient tomorrow a.m. 2. Continue post neurosurgical hospital care as directed including repeating therapy CHAKA after MRI. 3. Hospitalist consult for possible vasovagal versus orthostatic hypotensive episodes & medical clearance for eventual discharge planned for his early as tomorrow. 4. Rx for FWW. 5. Social work &/or case management to cancel patient regarding her hospital stay & disposition. Attending Statement: All documentation reviewed and percent hours authorized by Dr. Christopher Munroe M.D. copies to: Kirsten Morrison Scott PA-C Jun 08, 2016 10:41
[2016-06-08] MEDS: Senna-Docusate 8.6-50 mg Tablet PO SCH ×2 (10:50→20:24)
[2016-06-08 10:53] VITALS: BP 96/62; PULSE 60; RESP 15; O2SAT 100
[2016-06-08] MEDS ORDERED: 0.9% Sodium Chloride 1,000 ML IV ONE ×2 (11:05→14:20)
[2016-06-08 11:47] LABS: BASOPHILS % (AUTO) 0.2 % (0-3); EOSINOPHILS % (AUTO) 0.6 % (0-5); MONOCYTES % (AUTO) 5.3 % (4-12); Mean Corpuscular Hemoglobin 29.1 pg (27.0-35.0); Mean Corpuscular Volume 90.7 fL (81-100); NEUTROPHILS % (AUTO) 81.7 % (40-74); Platelet Count 213 bil/L (150-400)
[2016-06-08 12:34] VITALS: BP 99/64; PULSE 95; RESP 18; O2SAT 99
--- NOTE | 2016-06-08 13:16 | DRSVH ---
PROCEDURE: MRI LUMBAR SPINE WITHOUT CONTRAST ([id number]) INDICATIONS: idiopathic numbness & difficulty with ambulation TECHNIQUE: Noncontrast sagittal T1 spin echo and T2 fast echo, sagittal STIR, axial T1 and T2 fast spin echo thr ough the lumbar spine. In cases with scoliosis, additional coronal T2 fast spin echo may be performe d. COMPARISON: [facility] Outside Film, MR, MR LUMBAR SPINE WO CON, 03/16/2016, 7:36. [facility], CR, XR LUMBAR SPINE 2 OR 3VW, 06/07/2016, 13:07. [facility], CR, XR LUMBAR SPINE LAT FL EX 3VW, 03/02/2016, 13:17. Outside Film, MR, MR LUMBAR SPINE WO CON, 04/10/2015, 7:06. (No written re ports accompany the outside examinations.) FINDINGS: Image quality: Excellent. Alignment and Curvature: There is normal bony alignment. Bone Marrow: Marrow is of normal overall signal. No acute vertebral body compression fractures. Sc attered foci are seen, which are hyperintense on T1-weighted and T2-weighted imaging, which are most consistent with benign vertebral body hemangiomas. Spinal Cord: Conus medullaris terminates at the T12-L1 level. Visualized cord demonstrates normal s ignal and size. Paraspinous Soft Tissues: No paravertebral masses. T12-L1: Normal appearance. L1-L2: Normal appearance. L2-L3: Normal appearance. L3-L4: The disc height is well-preserved. Minimal loss of disc height is seen. Mild to moderate dis c bulge is seen. Moderate facet joint hypertrophy is seen. There is mild left-sided and no significa nt right-sided neural foraminal narrowing seen. Mild central canal narrowing is seen. These findings are similar to the prior examination. L4-L5: Postoperative changes have taken place at this level, with left hemilaminectomy and partial di scectomy. A disc spacer is also in place at this level. The disc height is relatively well preserve d. A moderate disc bulge is seen. There is mild to moderate bilateral neural foraminal narrowing se en. The central canal is widely patent. The previously seen disc protrusion has resolved. L5-S1: Mild loss of disc height is seen. Loss of disc signal is seen. Mild disc bulge is seen, whic h is eccentric to the left. Mild facet joint hypertrophy is seen. There is minimal left-sided and no significant right-sided neural foraminal narrowing seen. Mild central canal narrowing is seen. Thes e findings are similar to the prior examination. IMPRESSION: Interval postoperative change at the L4-L5 level, with left hemilaminectomy and partial d iscectomy. A disc spacer is also been placed at this level. There is improvement of the degenerativ e change at this level. Dictated by: Trae Bland M.D. on 06/08/2016 at 12:08 Approved by: Trae Bland M.D. on 06/08/2016 at 12:15
--- NOTE | 2016-06-08 13:22 | NUR ---
CABLE REELER Was called by ELBA Miranda d/alida pt "passing out in chair" and asked to call CABLE REELER. CABLE REELER called @ 1003. Pt found sitting in recliner chair and appeared to have fainted. BP obtained and found to be 120/80, HR 99, BS 104. Pt appeared to still have some pink to her cheeks. Sternal rubbed pt and pt was able to open her eyes. Dr. Mcleod arrived in room @ 1005 although she is not the MD she was nice to assist us with this. Pt put back in bed and then 8 minutes later pt stated that she need to use the BSC. DISTRICT MANAGER [employer] SALES assisted pt to BSC where she first voided and then appeared to faint again. This nurse, CECIL Vicente, and PT Ruben "production laborer" lifted her back to bed where a set of vitals were obtains. BP 88/61 and pt put into Trendelenburg Pt did not immediately wake up until sternal rubbed again. Pt appeared to look confused but again did not lose the pink in her cheeks or become diaphoretic although she did c/o ringing her left ear. David Fonseca made aware of this and new orders were obtained. Urgent Lumbar MRI and hospitalist consult. Care conts
--- NOTE | 2016-06-08 13:31 | NUR ---
BP BP remains in the 90s/60s and pts remains in bed. Taken to MRI via bed d/t vaso vagal. Care conts
--- NOTE | 2016-06-08 14:30 | PCM.CHPMED ---
Subjective Date of Service: Jun 08, 2016 Provider requesting consult: Christopher Munroe MD Primary Physician: Admitting Physician: Primary Care Physician: Kirsten Morrison DO Attending Physician: Christopher Munroe MD Chief Complaint: Chief Complaint: Syncope History of Present Illness: Patient is a 35 year old female with a past medical history of chronic lower back pain. She was admitted to hospital under the Neurosurgeon's service and underwent an L4-L5 hemilaminectomy and partial discectomy on 06/07/2016. Post procedure, she has residual lower extremity numbness. She was participating in physical therapy this morning, when she suddenly felt very faint and had a syncopal episode. She states she felt as though she was going to faint upon standing from her hospital bed to participate in physical therapy. She denies any headache, visual changes, chest pain, palpitations, and shortness of breath. She denies any dizziness, nausea, and vomiting at present. A rapid response was called by nursing staff. Pt was found to be hypotensive. Pt denies any fever, dysuria, cough, or shortness of breath. Pt states her dizziness has resolved. She states her tongue feels dry and she is thirsty. Pt has no other complaints or concerns at this time. Review of Systems: All systems reviewed and are negative except for what has already been mentioned in the HPI. PMH Past Medical History 1. Chronic Back Pain Hx Any Other Health Problems?: NoHx Diabetes: NoBedside Blood Glucose: 63 Surgical History 1. Partial Discectomy, 05/2016 2. L4-L5 Laminectomy, 05/2016 Home Medications 1. Tizanidine 2. Gabapentin 3. Ibuprofen Allergies: Coded Allergies: morphine (Verified Allergy, Unknown, intolerable itching, 06/07/16) Family History Family History Pt denies any family history of cardiac problems. Social History Hx Alcohol Use: YesAlcoholic Drinks Per Day: once every few monthsHx Substance Use: NoHx Tobacco Use: No Exam Vital Signs Vital Sign - Last Date Time Temp Pulse Resp B/P Pulse Ox O2 Delivery O2 Flow Rate FiO2 06/08/16 12:34 36.9 95 18 99/64 99 06/08/16 10:53 Room Air 06/07/16 16:32 2 Intake and Output 06/07/16 06/07/16 06/08/16 Cumulative From/Thru 14:59 22:59 06:59 06/03/16 14:44 - 06/08/16 06:04 Intake Total 900 ml 300 ml 861 ml 2061 ml Balance 900 ml 300 ml 861 ml 2061 ml Intake IV Total 900 ml 300 ml 861 ml 2061 ml General: Alert, Oriented X3, Cooperative, No Acute Distress Head: Normal Eyes: PERRLA, EOMI Mouth: Mouth Normal, Mucous Membr Moist/[place] Neck: Supple Chest & Lungs: Chest Wall Normal, Clear to auscultation & percussion Cardiovascular: Exam Unremarkable, Regular Rate/Rhythm, Normal S1, Normal S2, No Murmurs/Rubs/Gallops Abdomen: Non-tender, Non-distended Extremities: No cyanosis/clubbing/edma bilat Neurological: Strength Normal 05/31 ext Lab and Diagnostics Result Diagram: 06/08/16 1135 06/08/16 1135 Assessment & Plan Assessment Patient is a 35 year old female with a hx of chronic back pain status post L4- L5 hemilaminectomy and partial discectomy who we are consulting on for Syncope. 1. Syncope - Likely secondary to orthostasis from dehydration - BP is low at present - Bolus pt with 2 liters of NS now - Start NS at 100 mL/hour - Check Lactic Acid level - I doubt pt is septic, however I will order blood cultures x2 and check a UA with reflex culture - CBC and BMP in AM - Telemetry monitoring - Will check orthostatic vital signs - Monitor closely - Push PO intake 2. Chronic Back Pain - Pt is status post surgery - Neurosurgery managing Problems: VTE Mechanical Devices: Intermittant Pneumatic CD Zafar Moscoso MD Jun 08, 2016 14:29
--- NOTE | 2016-06-08 15:43 | NUR ---
Social Work-attempted assessment: SW attempted to see pt today, pt out of the room. SW to follow up again with pt tomorrow. SW will continue to follow. YUDELKA Osborne
[2016-06-08] MEDS: 0.9% Sodium Chloride 1,000 ML IV SCH ×2 (16:58→21:05)
[2016-06-08 19:54] LABS: APPEARANCE,URINE CLEAR (CLEAR,HAZY); COLOR,URINE STRAW (YELLOW); OCCULT BLOOD,URINE NEGATIVE (NEGATIVE); UROBILINOGEN,URINE NORMAL (NORMAL)
[2016-06-08 20:05] VITALS: BP 110/66; PULSE 105; RESP 16; O2SAT 100
[2016-06-09] MEDS: 0.9% Sodium Chloride 1,000 ML IV SCH (02:07)
--- NOTE | 2016-06-09 03:29 | NUR ---
Mobility Pt. states numbness improving to LE yet not ambulating.Can transfer and pivot with minimal assist.Pedal pulses palpable and cap refill brisk.Dressing D&I with some old drainage noted.VSS.I&O qs.Good pain control with po analgesia.Sleeping soundly and resting comfortably at this time.Will cont. to monitor.
[2016-06-09] MEDS: HYDROcodone-APAP 10-325 mg PO PRN ×2 (03:37→08:05)
[2016-06-09 05:52] VITALS: BP 104/61; PULSE 102; RESP 16; O2SAT 97
[2016-06-09 06:01] LABS: BASOPHILS % (AUTO) 0.2 % (0-3); EOSINOPHILS % (AUTO) 1.3 % (0-5); MONOCYTES % (AUTO) 7.2 % (4-12); Mean Corpuscular Hemoglobin 29.1 pg (27.0-35.0); Mean Corpuscular Volume 91.8 fL (81-100); NEUTROPHILS % (AUTO) 67.8 % (40-74); Platelet Count 204 bil/L (150-400)
[2016-06-09] MEDS: Senna-Docusate 8.6-50 mg Tablet PO SCH (08:05)
[2016-06-09 08:07] VITALS: BP 108/70; PULSE 90; RESP 16; O2SAT 99
[2016-06-09 10:02] VITALS: BP 115/69; PULSE 100; RESP 18; O2SAT 99
[2016-06-09 10:04] VITALS: BP 125/66
[2016-06-09 10:05] VITALS: BP 124/78
--- NOTE | 2016-06-09 11:13 | NUR ---
Data & Assessment Data & Assessment: Flooring Professional met with patient at bedside and notified her that PT was recommending a FWW for ambulation when discharged. Patient voiced understanding and was in agreement with FWW being ordered from [facility]. UR specialist will order patient DME from [facility]. SW will continue to follow. Plan: Patient's FWW will be ordered from [facility]. Patient will discharge home via POV. SW will continue to follow. Sharee Canales LMSW, [place]
--- NOTE | 2016-06-09 11:45 | PCM.PNMED ---
Subjective Date of Service Jun 09, 2016 Subjective Pt doing well today. Pt denies any dizziness. RN reports no hypotension overnight. Pt has been able to ambulate without difficulty and has been taking PO well. No complaints or concerns at this time. Exam Vital Signs Vital Sign - Last Date Time Temp Pulse Resp B/P Pulse Ox O2 Delivery O2 Flow Rate FiO2 06/09/16 10:24 Supplement Oxygen 06/09/16 10:05 124/78 06/09/16 10:02 36.3 100 18 99 06/07/16 16:32 2 Intake and Output 06/08/16 06/08/16 06/09/16 Cumulative From/Thru 15:00 23:00 07:00 06/03/16 14:44 - 06/09/16 05:52 Intake Total 3040 ml 3446 ml 8547 ml Output Total 910 ml 3200 ml 4110 ml Balance 2130 ml 246 ml 4437 ml Intake Oral 840 ml 2200 ml 3040 ml IV Total 2200 ml 1246 ml 5507 ml Output Urine Total 910 ml 3200 ml 4110 ml # Bowel Movements 1 1 Exam GENERAL: NAD, Pt laying in bed comfortably HEENT: AT/NC, PERRLA, EOMI, Mucus Membranes are moist CARDIAC: RRR; No M/R/G PULM: CTAB; No wheezes or rhonchi bilaterally NEURO: Alert and oriented x3; Following all commands PSYCH: Normal mood and affect IVs and Medications Medications Reviewed: Medications were reviewed in detail Lab and Diagnostics Result Diagram: 06/09/1625 06/09/16524 Assessment & Plan 1. Syncope - Secondary to Hypotension which has resolved with IV fluids - Pt tolerating PO well - Stop IV fluids now - Okay for discharge from Internal Medicine's standpoint Internal Medicine will sign off at this time. Thank you for this consult. Please call us if you have any further questions. VTE Mechanical Devices: Intermittant Pneumatic CD Zafar Moscoso MD Jun 09, 2016 11:45
--- NOTE | 2016-06-09 12:02 | NUR ---
Faxed script and facesheet to [facility] per [facility]ER
--- NOTE | 2016-06-09 13:54 | NUR ---
Social Work: Discharge Data & Assessment: Business Travel Consultant was notified by UA specialist that [facility] is not in network with the patient's insurance for a walker. SW called [facility] and was notified that authorization is needed prior to patient receiving the walker and that the authorization could take a few days. SW notified patient and patient's spouse and they decided that they will purchase the FWW and request reimbursement from the insurance. Patient will discharge home via POV with no needs. Plan: Patient will discharge home via POV. Patient will purchase FWW and request reimbursement from the insurance. Sharee Canales, JC, ACM
--- NOTE | 2016-06-09 14:10 | NUR ---
DISCHARGE Hydrocodone 10 mg/APAP 325 mg 1 tab PO has been helpful for pain control. Tolerating liquids PO and her diet well. Denies nausea. No emesis noted. Denies SOB. Patient ambulated in the hallway with SBA and a FWW. Tolerated activity well. RLE numbness persists. This is not new. Per patient it is getting better. Dressing is CDI. Old shadowing noted. Per David Fonseca-Dressing is to be left in place till he sees her on her follow up appointment. IV d/cd. Discharge instructions and care notes was given to the patient and she verbalized understanding. Discharged to home with her and all her personal belongings. (Copy of D/C is in the chart). *Medically cleared by Dr. Moscoso to D/C. David Fonseca, PAC updated RE: Post-op progress prior to D/C.
== END 2016-06-09 14:10 | disposition home or self-care (01) ==
LOC: SAS 09:48 → OSC 18:54 → SAS 06-09 14:10
PROVIDERS: ATTEND Neurological Surgery
DX: M51.16 Intervertebral disc disorders with radiculopathy, lumbar region (principal); G89.4 Chronic pain syndrome; R20.0 Anesthesia of skin; R20.2 Paresthesia of skin; R55 Syncope and collapse
CPT/HCPCS: 36415; 63047; 72100; 72148; 74000; 76000; 80053; 81000; 83605; 84145; 85025; 86140; 87040; 87086; 94640; 97162; 97530; J0690; J1100; J1170; J1885; J2250; J2405; J3010; J7030; J7120; Q0177